=== PATIENT | female | born 1995 | race Caucasian/White ===

== ENCOUNTER 2016-09-22 20:02 | Emergency (ER) | payer MEDICAID ==
[2016-09-22 20:10] VITALS: BP 123/71; PULSE 118; RESP 16; TEMP 98.3; O2SAT 100
[2016-09-22] MEDS ORDERED: Sodium Chloride 0.9% 1,000 ML IV STA (20:26)
[2016-09-22] MEDS ORDERED: Iohexol 240 (50 ml) PO STA (21:09)
[2016-09-22 21:11] LABS: BASO % 0.2 % (0.0-2.0); EOS % 0.3 % (0.0-4.0); HEMOGLOBIN 14.3 g/dL (12.0-16.0); LYMPH # 0.7 K/uL (1.0-4.3); LYMPH % 13.2 % (20.0-40.0); MEAN CELL VOLUME 91.6 fl (81.0-99.0); MEAN CORPUSCULAR HEMOGLOBIN 31.4 pg (27.0-31.0); MEAN CORPUSCULAR HGB CONC 34.2 g/dL (33.0-37.0); MEAN PLATELET VOLUME 9.4 fl (7.2-11.7); MONO # 0.2 K/uL (0.0-0.8); MONO % 3.6 % (0.0-10.0); NEUT # 4.3 K/uL (1.8-7.0); NEUT % 82.7 % (50.0-75.0); RBC 4.57 Mil/uL (3.80-5.20); RED CELL DISTRIBUTION WIDTH 12.8 % (11.5-14.5); WHITE BLOOD COUNT 5.2 K/uL (4.8-10.8)
[2016-09-22 21:24] LABS: ALB/GLOB RATIO 1.3 (1.0-2.1); ALBUMIN 4.5 g/dL (3.5-5.0); ALT/SGPT 36 U/L (9-52); AST/SGOT 31 U/L (14-36); BLOOD UREA NITROGEN 8 mg/dl (7-17); CALCIUM 9.2 mg/dL (8.4-10.2); GFR AFRICAN-AMERICAN > 60; GFR NON-AFRICAN AMERICAN > 60; LIPASE 124 U/L (23-300)
[2016-09-22] MEDS ORDERED: Iohexol 240 (50 ml) ONE (21:40)
[2016-09-22] MEDS ORDERED: Iohexol 300 100 ML IJ ONE (21:42)
[2016-09-22] MEDS ORDERED: Sodium Chloride 0.9% 50 ML IV ONE (21:42)
--- NOTE | 2016-09-22 21:54 | ED PDOC ---
HPI: Abdomen Time Seen by Provider: 09/22/16 20:11 Chief Complaint (Nursing): Abdominal Pain Chief Complaint (Provider): Abdominal pain, dairrhea History Per: Patient History/Exam Limitations: no limitations Onset/Duration Of Symptoms: Days (2) Outside of [place] travel?: No Current Symptoms Are (Timing): Still Present Context: Food Location Of Pain/Discomfort: Diffuse Associated Symptoms: Nausea, Diarrhea, Loss Of Appetite. denies: Vomiting Additional History Per: Patient Additional Complaint(s): The patient is a 21yo female, no pertinent PMHx, presents to the ED for evaluation of abdominal paina nd diarrhea present for the past 2 days s/p eating raw clams. Patient reports diffuse, crampy abdominal pain, nausea no vomiting associated with loose, watery non bloody diarrhea with multiple episodes yesterday and one episode today. Pt reports she has no appetite and is feeling weak,. States she took Tylenol with no relief. She denies any recent travels and offers no additional medical complaints. Past Medical History Reviewed: Historical Data, Nursing Documentation, Vital Signs Vital Signs: Last Vital Signs Temp 98.3 F 09/22/16 20:07 Pulse 118 H 09/22/16 20:07 Resp 16 09/22/16 20:07 BP 123/71 09/22/16 20:07 Pulse Ox 100 09/22/16 21:56 - Medical History PMH: No Chronic Diseases - Surgical History Surgical History: No Surg Hx - Family History Family History: States: No Known Family Hx - Social History Current smoker - smoking cessation education provided: No Alcohol: None Drugs: Denies - Home Medications Home Medications: Ambulatory Orders Medication Instructions Recorded Ciprofloxacin [Cipro] 500 mg PO Q12 #14 tab 09/22/16 Dicyclomine [Bentyl] 20 mg PO Q12 PRN #20 tab 09/22/16 Ondansetron ODT [Zofran ODT] 4 mg PO Q6 PRN #16 odt 09/22/16 - Allergies Allergies/Adverse Reactions: Allergies Allergy/AdvReac Type Severity Reaction Status Date / Time No Known Allergies Allergy Verified 09/22/16 20:19 Review of Systems ROS Statement: Except As Marked, All Systems Reviewed And Found Negative Gastrointestinal: Positive for: Nausea, Abdominal Pain, Diarrhea. Negative for : Vomiting Physical Exam - Reviewed Nursing Documentation Reviewed: Yes Vital Signs Reviewed: Yes - Physical Exam Appears: Positive for: Well, Non-toxic, No Acute Distress Head Exam: Positive for: ATRAUMATIC, NORMAL INSPECTION, NORMOCEPHALIC Skin: Positive for: Normal Color, Warm, DRY Eye Exam: Positive for: Normal appearance Neck: Positive for: Normal, Supple Cardiovascular/Chest: Positive for: Regular Rate, Rhythm, Tachycardia Respiratory: Positive for: Normal Breath Sounds. Negative for: Respiratory Distress Gastrointestinal/Abdominal: Positive for: Soft, Tenderness (McBurney's point tenderness) Extremity: Positive for: Normal ROM. Negative for: Deformity, Swelling Neurologic/Psych: Positive for: Alert, Oriented - Laboratory Results Result Diagrams: 09/22/16 21:00 09/22/16 21:00 - ECG O2 Sat by Pulse Oximetry: 100 (RA) Pulse Ox Interpretation: Normal Medical Decision Making Medical Decision Making: Time: 2019 Impression: Right lower quadrant tenderness Plan: -- IV fluids -- Labs -- CT AP Reassess 2312 CT FINDINGS: Limitations: Motion artifact - mild. Lower thorax: No acute findings. ABDOMEN: Liver: Minimal periportal edema. Gallbladder and bile ducts: No calcified stones. No ductal dilation. Pancreas: No ductal dilation. No mass. Spleen: No splenomegaly. Adrenals: No mass. Kidneys and ureters: No mass. No hydronephrosis. Stomach and bowel: Underdistention of LEFT colon. No definite mural thickening. Few minimally distended loops of small bowel, likely ileus. Appendix: Normal caliber. No definite inflammation. PELVIS: Bladder: Unremarkable. Reproductive: Unremarkable as visualized. ABDOMEN and PELVIS: Intraperitoneal space: Trace free fluid within pelvis. No free air. Bones/joints: No acute fracture. Soft tissues: Unremarkable. Vasculature: Circumaortic LEFT renal vein. No aneurysm. Lymph nodes: Several subcentimeter short axis mesenteric lymph nodes, nonspecific. IMPRESSION: 1. Possible mesenteric adenitis. Clinical correlation is needed. 2. Periportal edema, nonspecific. 3. Incidental/non-acute findings are described above. 2320 Labs reviewed: no clinically significant abnormalities. Urine: indicative of infection Upon re-evaluation, patient reports feeling better. Dx: gastroenteritis and UTI Patient is medically stable and ready for discharge. Counseling has been provided and patient is in agreement. Return if symptoms persist or acutely worsen. Scribe Attestation: Documented by Martha Cherry acting as a scribe for [employer]ikand, MD. Provider Attestation: All medical record entries made by the Scribe were at my direction and personally dictated by me. I have reviewed the chart and agree that the record accurately reflects my personal performance of the history, physical exam, medical decision making, and the department course for this patient. I have also personally directed, reviewed, and agree with the discharge instructions and disposition. Disposition - Clinical Impression Clinical Impression: Gastroenteritis, UTI (urinary tract infection) - Patient ED Disposition Is Patient to be Admitted: No Counseled Patient/Family Regarding: Studies Performed, Diagnosis, Rx Given - Disposition Disposition: Routine/Home Disposition Time: 23:20 Condition: STABLE Prescriptions: Ciprofloxacin [Cipro] 500 mg PO Q12 #14 tab Dicyclomine [Bentyl] 20 mg PO Q12 PRN #20 tab PRN Reason: diarrhea/abdominal pain Ondansetron ODT [Zofran ODT] 4 mg PO Q6 PRN #16 odt PRN Reason: Nausea/Vomiting Instructions: Urinary Tract Infection in Women (ED), Gastroenteritis (ED) Forms: [facility] ED School/Work Excuse
[2016-09-22 22:00] LABS: SQUAMOUS EPITHIAL 8 /hpf (0-5); URINE BACTERIA RARE (<OCC); URINE BILIRUBIN NEGATIVE (NEGATIVE); URINE BLOOD SMALL (NEGATIVE); URINE CALCIUM OXALATE CRYSTALS RARE /hpf (<OCC); URINE CLARITY SLIGHTY-CLOUDY (Clear); URINE COLOR YELLOW (YELLOW); URINE GLUCOSE (UA) NEG (Normal); URINE LEUKOCYTE ESTERASE SMALL Leu/uL (Negative); URINE NITRATE NEGATIVE (NEGATIVE); URINE PROTEIN NEGATIVE (NEGATIVE)
--- NOTE | 2016-09-22 23:13 | CT ---
EXAM: CT Abdomen and Pelvis With Intravenous Contrast CLINICAL HISTORY: 21 years old, female; Pain; Abdominal pain; Generalized; Additional info: Abd pain TECHNIQUE: Axial computed tomography images of the abdomen and pelvis with intravenous contrast. This CT exam was performed using one or more of the following dose reduction techniques: automated exposure control, adjustment of the mA and/or kV according to patient size, and/or use of iterative reconstruction technique. Coronal and sagittal reformatted images were created and reviewed. CONTRAST: 90 mL of [id number] administered intravenously. COMPARISON: No relevant prior studies available. FINDINGS: Limitations: Motion artifact - mild. Lower thorax: No acute findings. ABDOMEN: Liver: Minimal periportal edema. Gallbladder and bile ducts: No calcified stones. No ductal dilation. Pancreas: No ductal dilation. No mass. Spleen: No splenomegaly. Adrenals: No mass. Kidneys and ureters: No mass. No hydronephrosis. Stomach and bowel: Underdistention of LEFT colon. No definite mural thickening. Few minimally distended loops of small bowel, likely ileus. Appendix: Normal caliber. No definite inflammation. PELVIS: Bladder: Unremarkable. Reproductive: Unremarkable as visualized. ABDOMEN and PELVIS: Intraperitoneal space: Trace free fluid within pelvis. No free air. Bones/joints: No acute fracture. Soft tissues: Unremarkable. Vasculature: Circumaortic LEFT renal vein. No aneurysm. Lymph nodes: Several subcentimeter short axis mesenteric lymph nodes, nonspecific. IMPRESSION: 1. Possible mesenteric adenitis. Clinical correlation is needed. 2. Periportal edema, nonspecific. 3. Incidental/non-acute findings are described above.
== END 2016-09-22 23:38 | disposition home or self-care (01) ==
LOC: H.ER 20:02
DX: K52.9 Noninfective gastroenteritis and colitis, unspecified (principal); R11.0 Nausea; R19.7 Diarrhea, unspecified; N39.0 Urinary tract infection, site not specified

== ENCOUNTER 2016-11-08 23:09 | Emergency (ER) | payer MEDICAID ==
[2016-11-08 23:25] VITALS: RESP 18
[2016-11-09 00:32] VITALS: BP 122/61; PULSE 88; TEMP 99; O2SAT 100
--- NOTE | 2016-11-09 01:02 | ED PDOC ---
HPI: General Adult Time Seen by Provider: 11/08/16 23:33 Chief Complaint (Nursing): Flu-like Symptoms Chief Complaint (Provider): Flu-Like Symptoms History Per: Patient History/Exam Limitations: no limitations Onset/Duration Of Symptoms: Days (x4) Current Symptoms Are (Timing): Still Present Additional Complaint(s): 21 year old female presents to ED with complaints of fever and chills x4 days and has no past medical history. (-) nausea, vomiting, or diarrhea. (+) sore throat x1 day and mild cough. Notes that even though she is experiencing throat pain, she is still able to swallow. PCP: Ewa Pearl Past Medical History Reviewed: Historical Data, Nursing Documentation, Vital Signs Vital Signs: Last Vital Signs Temp 99.0 F 11/09/16 00:31 Pulse 88 11/09/16 00:31 Resp 18 11/09/16 00:31 BP 122/61 11/09/16 00:31 Pulse Ox 100 11/09/16 01:05 - Medical History PMH: No Chronic Diseases - Surgical History Surgical History: No Surg Hx - Family History Family History: States: No Known Family Hx - Social History Current smoker - smoking cessation education provided: No Ex-Smoker (has not smoked in the last 12 months): No Alcohol: Occasional Drugs: Denies - Home Medications Home Medications: Ambulatory Orders Medication Instructions Recorded Ciprofloxacin [Cipro] 500 mg PO Q12 #14 tab 09/22/16 Dicyclomine [Bentyl] 20 mg PO Q12 PRN #20 tab 09/22/16 Ondansetron ODT [Zofran ODT] 4 mg PO Q6 PRN #16 odt 09/22/16 - Allergies Allergies/Adverse Reactions: Allergies Allergy/AdvReac Type Severity Reaction Status Date / Time No Known Allergies Allergy Verified 09/22/16 20:19 Review of Systems ROS Statement: Except As Marked, All Systems Reviewed And Found Negative Constitutional: Positive for: Fever, Chills ENT: Positive for: Throat Pain Respiratory: Positive for: Cough (mild) Gastrointestinal: Negative for: Nausea, Vomiting, Diarrhea Physical Exam - Reviewed Nursing Documentation Reviewed: Yes Vital Signs Reviewed: Yes - Physical Exam Appears: Positive for: Non-toxic, No Acute Distress Head Exam: Positive for: ATRAUMATIC, NORMOCEPHALIC Skin: Positive for: Normal Color, Warm, Dry Eye Exam: Positive for: Normal appearance ENT: Positive for: Pharynx Is (clear), Pharyngeal Erythema (mild). Negative for : Nasal Congestion, Tonsillar Exudate, Tonsillar Swelling Neck: Positive for: Normal, Painless ROM, Supple Cardiovascular/Chest: Positive for: Regular Rate, Rhythm. Negative for: Murmur Respiratory: Positive for: Normal Breath Sounds. Negative for: Respiratory Distress Gastrointestinal/Abdominal: Positive for: Normal Exam, Soft. Negative for: Tenderness Back: Positive for: Normal Inspection Extremity: Positive for: Normal ROM. Negative for: Deformity Neurologic/Psych: Positive for: Alert, Oriented. Negative for: Motor/Sensory Deficits - ECG O2 Sat by Pulse Oximetry: 100 (RA) Pulse Ox Interpretation: Normal Medical Decision Making Medical Decision Makin Initial impression: sore throat Initial plan: * UPreg * UDip * Prednisone 60mg PO * Throat Cx * Influenza A B * Rapid strep * Re-eval 0020 Upon re-evaluation, patient notes an improvement in symptoms. Strep and flu test: negative Patient is medically stable for discharge home. Dx: viral syndrome, pharyngitis Scribe Attestation: Documented by Gwen Dubois acting as a scribe for [employer] MD. Scribe Attestation: All medical record entries made by the Scribe were at my direction and personally dictated by me. I have reviewed the chart and agree that the record accurately reflects my personal performance of the history, physical exam, medical decision making, and the department course for this patient. I have also personally directed, reviewed, and agree with the discharge instructions and disposition. Disposition - Clinical Impression Clinical Impression: Pharyngitis - Disposition Disposition: Routine/Home Disposition Time: 00:20 Condition: STABLE Instructions: Pharyngitis (ED), Viral Syndrome (ED) Forms: [facility] (Macedonian), [facility] ED School/Work Excuse
== END 2016-11-09 00:47 | disposition home or self-care (01) ==
LOC: H.ER 23:09
DX: B34.9 Viral infection, unspecified (principal); J02.9 Acute pharyngitis, unspecified